=== PATIENT | female | born 1995 | race Caucasian/White ===

== ENCOUNTER 2021-07-07 17:35 | Emergency (ER) | payer OTHER ==
[~2021-07-07] VITALS: Ht 162.6 cm; Wt 90.0 kg
[2021-07-07 18:07] LABS: BASOPHILS % 0.6 % (0.0-2.0); EOSINOPHILS % 4.2 % (0.0-5.0); HEMATOCRIT. 32.2 % (36.0-48.0); HEMOGLOBIN. 10.9 g/dL (12.0-16.0); LYMPHOCYTES % 31.6 % (20.0-50.0); MEAN CORPUSCULAR HEMOGLOBIN 31.5 pg (28.0-32.0); MEAN CORPUSCULAR VOLUME 92.8 fL (81.0-99.0); MEAN PLATELET VOLUME 7.1 fl (7.4-10.4); MONOCYTES % 13.1 % (2.0-8.0); NEUTROPHILS % 50.5 % (40.0-76.0); PLATELET 248 x1000/uL (130-400); RED BLOOD CELL COUNT 3.47 mill/uL (4.2-5.4); RED CELL DISTRIBUTION WIDTH 14.6 % (11.6-14.6)
[2021-07-07 18:14] LABS: CHLORIDE 107 mEq/L (98-107)
[2021-07-07] MEDS ORDERED: MAGNESIUM/ALUMINUM HYDROXIDE/SIMETHICONE 30ML UDC PO NR (18:37)
[2021-07-07] MEDS ORDERED: ACETAMINOPHEN 325MG TABLET PO NR (18:37)
[2021-07-08 01:07] VITALS: BP 121/75
== END 2021-07-08 01:03 | disposition home or self-care (01) ==
LOC: ER 17:35
DX: R10.11 Right upper quadrant pain (principal); F20.9 Schizophrenia, unspecified; F31.9 Bipolar disorder, unspecified
CPT/HCPCS: 36415; 76705; 80053; 85025; 99284